=== PATIENT | male | born 1995 | race African-American/Black ===

== ENCOUNTER 2019-05-24 14:23 | Emergency (ER) | payer OTHER ==
[~2019-05-24] VITALS: Ht 175.3 cm; Wt 63.5 kg
[2019-05-24 14:25] VITALS: BP 110/74
--- NOTE | 2019-05-24 15:15 | EKG ---
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: JUSTIN : 1995 Requested By: Geovanna Pruitt Order Number: [id number] MD: Matthias Martínez Measurements Intervals [place] Rate: 65 P: 70 WI: 152 QRS: 35 QRSD: 88 T: 43 QT: 374 QTc: 389 Interpretive Statements Sinus rhythm Atrial premature complexes in couplets ST elev, probable normal early repol pattern No previous ECG available for comparison Electronically Signed On 05-24-2019 15:13:35 CDT by Matthias Martínez [email or web address] <ELECTRONICALLY SIGNED> By: Matthias Martínez MD 05/24/19 1513 26 142 Matthias Martínez MD /JAMES
[2019-05-24] MEDS ORDERED: NAPROSYN500 MG PO (15:29)
== END 2019-05-24 15:43 | disposition home or self-care (01) ==
LOC: ER 14:23
DX: R07.89 Other chest pain (principal)